=== PATIENT | female | born 1975 | race African-American/Black ===

== ENCOUNTER 2016-09-21 07:30 | Emergency (ER) | payer OTHER ==
[2016-09-21 19:42] VITALS: BP 121/69
--- NOTE | 2016-09-21 20:08 | UC ---
Back Pain HPI - HPI Summary HPI Summary: Pt had pyelonephritis in Jun. Positive culture for e coli, slight L-sided hydronephrosis, no fever or leukocytosis. Hubbard like sx improved with 1 week of cipro but took another week or so of pushing fluids to totally go away. About 1 week ago developed achy bilat low back pain that moved up into flank areas within a day. Feeling tired, crummy, hot and cold since then. Some bladder tenderness but minimal dysuria and no frequency. Worried she has pyelonephritis again. - History of Current Complaint Chief Complaint: UCGeneralIllness Stated Complaint: LOWER BACK/ABD PAIN Time Seen by Provider: 09/21/16 19:44 Hx Obtained From: Patient Hx Last Menstrual Period: 09/06/16 ?: No Onset/Duration: Gradual Onset, Lasting Days Timing: Constant Severity Initially: Mild Severity Currently: Mild Back Pain: Is Discrete @ Character: Dull, Aching Aggravating: Nothing Associated Signs And Symptoms: Positive: Other - mild urinary sx. Negative: Numbness, Bladder Incontinence, Bowel Incontinence, Weight Loss - Allergies/Home Medications Allergies/Adverse Reactions: Allergies Allergy/AdvReac Type Severity Reaction Status Date / Time Ampicillin Allergy Hives Verified 09/21/16 19:24 PMH/Surg Hx/FS Hx/Imm Hx Previously Healthy: Yes - Surgical History Surgical History: Yes Surgery Procedure, Year, and Place: breast fibroid removal 2009. - Family History Known Family History: Negative: Blood Disorder - Social History Lives: With Family Alcohol Use: Occasionally Substance Use Type: None Smoking Status (MU): Heavy Every Day Tobacco Smoker Amount Used/How Often: 1/2 -1 pack/day - Immunization History Most Recent Influenza Vaccination: never Review of Systems Constitutional: Fatigue Skin: Negative Eyes: Negative ENT: Negative Respiratory: Negative Cardiovascular: Negative Gastrointestinal: Abdominal Pain Genitourinary: Negative Motor: Negative Neurovascular: Negative Musculoskeletal: Negative Neurological: Negative Psychological: Negative All Other Systems Reviewed And Are Negative: Yes Physical Exam Triage Information Reviewed: Yes Appearance: Well-Appearing, No Pain Distress, Well-Nourished Vital Signs: Initial Vital Signs Temp 99.1 F 09/21/16 19:25 Pulse 70 09/21/16 19:25 Resp 18 09/21/16 19:25 BP 121/69 09/21/16 19:25 Pulse Ox 100 09/21/16 19:25 Vital Signs Reviewed: Yes Eye Exam: Normal Eyes: Positive: Conjunctiva Clear ENT Exam: Normal ENT: Positive: Normal ENT inspection, Hearing grossly normal, Pharynx normal, TMs normal Dental Exam: Normal Neck exam: Normal Neck: Positive: Supple, Nontender, No Lymphadenopathy Respiratory Exam: Normal Respiratory: Positive: Chest non-tender, Lungs clear, Normal breath sounds, No respiratory distress, No accessory muscle use Cardiovascular Exam: Normal Cardiovascular: Positive: RRR, No Murmur Abdomen Description: Positive: No Organomegaly, Soft. Negative: CVA Tenderness (R), CVA Tenderness (L) Musculoskeletal Exam: Normal Neurological Exam: Normal Psychological Exam: Normal Skin Exam: Normal Back Pain Course/Dx - Differential Dx/Diagnosis Provider Diagnoses: UTI. malaise Discharge - Discharge Plan Condition: Stable Disposition: HOME Prescriptions: Sulfamethox/Trimethoprim DS* [Bactrim DS 800/160 TAB*] 1 tab PO BID #10 tab Patient Education Materials: Urinary Tract Infection in Women (ED) Referrals: Jony Garcia MD [Primary Care Provider] - 1 Week Additional Instructions: Your urinalysis and exam do not suggest a kidney infection, but since you are feeling similar to your recent infection I am treating you with a urinary antibiotic. Please call Dr. Garcia's office for a follow-up visit, this week if possible.
== END 2016-09-21 20:10 | disposition home or self-care (01) ==
LOC: UCEAST 18:46
DX: N39.0 Urinary tract infection, site not specified (principal); R53.81 Other malaise; F17.210 Nicotine dependence, cigarettes, uncomplicated; Z88.0 Allergy status to penicillin
CPT/HCPCS: 81003; 87086; 99212; G0463

== ENCOUNTER 2016-11-22 12:34 | Emergency (ER) | payer MEDICAID, OTHER ==
[2016-11-22 14:28] LABS: Hematocrit 40 % (35-47); Mean Corpuscular HGB Conc 33 g/dl (31-36); Mean Corpuscular Hemoglobin 30 pg (27-31); Mean Corpuscular Volume 92 fL (80-97); Mean Platelet Volume 9 um3 (7.4-10.4); Red Blood Count 4.35 10^6/ul (4.0-5.4); Red Cell Distribution Width 13 % (10.5-15); White Blood Count 6.5 10^3/ul (3.5-10.8)
[2016-11-22 14:35] VITALS: BP 123/53
[2016-11-22 14:46] LABS: ALT 10 U/L (7-52); AST 13 U/L (13-39); Albumin 4.2 g/dL (3.2-5.2); Alkaline Phosphatase 41 U/L (34-104); Anion Gap 4 mmol/L (2-11); BUN/Creatinine Ratio 14.7 (8-20); Blood Urea Nitrogen 10 mg/dL (6-24); CO2 Carbon Dioxide 25 mmol/L (22-32); Calcium 9.4 mg/dL (8.6-10.3); Chloride 109 mmol/L (101-111); EGFR Non-African American 94.9 (>60); Globulin 2.3 g/dL (2-4); Glucose 86 mg/dL (70-100); Potassium 3.8 mmol/L (3.5-5.0); Sodium 138 mmol/L (133-145); Total Protein 6.5 g/dL (6.4-8.9)
[2016-11-22 15:10] LABS: Acetaminophen < 15 mcg/mL; Alcohol < 10 mg/dL (<10); Salicylate < 2.50 mg/dL (<30)
[2016-11-22 15:19] LABS: TSH (Thyroid Stimulating Horm) 0.79 mcIU/mL (0.34-5.60)
[2016-11-22 18:39] LABS: Urine Bilirubin Negative (Negative); Urine Glucose Negative (Negative); Urine Nitrite Negative (Negative)
[2016-11-22 18:55] LABS: Benzodiazepine Urine Screen None Detected (None Detect)
--- NOTE | 2016-11-22 19:55 | ED ---
Palma Mcclellan Edward, scribed for Ronaldo Chatterjee MD on 11/22/16 at 1333 . Psychiatric Complaint - HPI Summary HPI Summary: 41 y/o female presents to ED s/p taking excess Klonopin, c/o of anxiety and panic. Patient was brought in by her after she took an estimated 12 5 mg tablets of Klonopin last night, as well as a moderate amount of EtOH. Patient states she was not trying to hurt herself, but her is worried that she was. Assoc sx: fatigue. Denies nausea, trouble urination. PMHx anxiety. - History Of Current Complaint Chief Complaint: EDMentalHealth Time Seen by Provider: 11/22/16 13:19 Hx Obtained From: Patient, Family/Collection Advisor - Hx Last Menstrual Period: 09/06/16 Character: Anxious Aggravating Factor(s): Recent Stress Related History: Positive For: Prior Psychiatric Issues - PMHx anxiety Ingestion History: Type/Name Of Drug - Klonopin, Amount Ingested - Estimated by as 12 5mg pills in total, Approximate Time Of Ingestion - Last night - Allergies/Home Medications Allergies/Adverse Reactions: Allergies Allergy/AdvReac Type Severity Reaction Status Date / Time Ampicillin Allergy Hives Verified 09/21/16 19:24 PMH/Surg Hx/FS Hx/Imm Hx Previously Healthy: No Psychiatric History: Reports: Hx Anxiety - Surgical History Surgery Procedure, Year, and Place: breast fibroid removal 2009. Infectious Disease History: Denies: Traveled Outside the [place] in Last 30 Days - Family History Known Family History: Negative: Blood Disorder - Social History Alcohol Use: Occasionally Substance Use Type: Reports: None Hx Tobacco Use: Yes Smoking Status (MU): Heavy Every Day Tobacco Smoker Type: Cigarettes Amount Used/How Often: 1/2 -1 pack/day Review of Systems Positive: Fatigue Eyes: Negative ENT: Negative Cardiovascular: Negative Respiratory: Negative Gastrointestinal: Negative Negative: Nausea Genitourinary: Negative Negative: dysuria Musculoskeletal: Negative Skin: Negative Neurological: Negative Positive: Anxious, Other - Panic All Other Systems Reviewed And Are Negative: Yes Physical Exam Triage Information Reviewed: Yes Vital Signs On Initial Exam: Initial Vitals Temp Pulse Resp BP Pulse Ox 98.7 F 101 16 123/58 100 11/22/16 12:38 11/22/16 12:38 11/22/16 12:38 11/22/16 12:38 11/22/16 12:38 Vital Signs Reviewed: Yes Appearance: Positive: Well-Appearing, No Pain Distress Skin: Positive: Warm, Skin Color Reflects Adequate Perfusion, Dry Head/Face: Positive: Normal Head/Face Inspection Eyes: Positive: Normal, EOMI, DU ENT: Positive: Normal ENT inspection Neck: Positive: Supple, Nontender Respiratory/Lung Sounds: Positive: Clear to Auscultation, Breath Sounds Present Cardiovascular: Positive: RRR Abdomen Description: Positive: Nontender, Soft Bowel Sounds: Positive: Present Musculoskeletal: Positive: Normal, Strength/ROM Intact Neurological: Positive: Normal, Sensory/Motor Intact, Alert, Oriented to Person Place, Time Psychiatric: Positive: Normal, Affect/Mood Appropriate Diagnostics - Vital Signs Vital Signs Temp Pulse Resp BP Pulse Ox 11/22/16 12:38 98.7 F 101 16 123/58 100 - Laboratory Lab Results: Lab Results 11/22/16 11/22/16 11/22/16 Range/Units 14:20 14:20 18:25 WBC 6.5 (3.5-10.8) 10^3/ul RBC 4.35 (4.0-5.4) 10^6/ul Hgb 13.0 (12.0-16.0) g/dl Hct 40 (35-47) % MCV 92 (80-97) fL MCH 30 (27-31) pg MCHC 33 (31-36) g/dl RDW 13 (10.5-15) % Plt Count 164 (150-450) 10^3/ul MPV 9 (7.4-10.4) um3 Neut % (Auto) 59.8 (38-83) % Lymph % (Auto) 31.8 (25-47) % Maury % (Auto) 6.8 (1-9) % Eos % (Auto) 0.9 (0-6) % Baso % (Auto) 0.7 (0-2) % Absolute Neuts (auto) 3.9 (1.5-7.7) 10^3/ul Absolute Lymphs (auto) 2.1 (1.0-4.8) 10^3/ul Absolute Monos (auto) 0.4 (0-0.8) 10^3/ul Absolute Eos (auto) 0.1 (0-0.6) 10^3/ul Absolute Basos (auto) 0 (0-0.2) 10^3/ul Absolute Nucleated RBC 0 10^3/ul Nucleated RBC % 0 Sodium 138 (133-145) mmol/L Potassium 3.8 (3.5-5.0) mmol/L Chloride 109 (101-111) mmol/L Carbon Dioxide 25 (22-32) mmol/L Anion Gap 4 (2-11) mmol/L BUN 10 (6-24) mg/dL Creatinine 0.68 (0.51-0.95) mg/dL Est GFR ( Amer) 122.0 (>60) Est GFR (Non-Af Amer) 94.9 (>60) BUN/Creatinine Ratio 14.7 (8-20) Glucose 86 (70-100) mg/dL Calcium 9.4 (8.6-10.3) mg/dL Total Bilirubin 0.90 (0.2-1.0) mg/dL AST 13 (13-39) U/L ALT 10 (7-52) U/L Alkaline Phosphatase 41 (34-104) U/L Total Protein 6.5 (6.4-8.9) g/dL Albumin 4.2 (3.2-5.2) g/dL Globulin 2.3 (2-4) g/dL Albumin/Globulin Ratio 1.8 (1-3) TSH 0.79 (0.34-5.60) mcIU/mL Beta HCG, Quant < 0.60 mIU/mL Urine Color Yellow Urine Appearance Clear Urine pH 7.0 (5-9) Ur Specific Monument 1.010 (1.010-1.030) Urine Protein Negative (Negative) Urine Ketones Negative (Negative) Urine Blood Negative (Negative) Urine Nitrate Negative (Negative) Urine Bilirubin Negative (Negative) Urine Urobilinogen Negative (Negative) Ur Leukocyte Esterase Negative (Negative) Urine Glucose Negative (Negative) Salicylates < 2.50 (<30) mg/dL Urine Opiates Screen (None Detect) Acetaminophen < 15 mcg/mL Ur Barbiturates Screen (None Detect) Ur Phencyclidine Scrn (None Detect) Ur Amphetamines Screen (None Detect) U Benzodiazepines Scrn (None Detect) Urine Cocaine Screen (None Detect) U Cannabinoids Screen (None Detect) Serum Alcohol < 10 (<10) mg/dL 11/22/16 Range/Units 18:25 WBC (3.5-10.8) 10^3/ul RBC (4.0-5.4) 10^6/ul Hgb (12.0-16.0) g/dl Hct (35-47) % MCV (80-97) fL MCH (27-31) pg MCHC (31-36) g/dl RDW (10.5-15) % Plt Count (150-450) 10^3/ul MPV (7.4-10.4) um3 Neut % (Auto) (38-83) % Lymph % (Auto) (25-47) % Maury % (Auto) (1-9) % Eos % (Auto) (0-6) % Baso % (Auto) (0-2) % Absolute Neuts (auto) (1.5-7.7) 10^3/ul Absolute Lymphs (auto) (1.0-4.8) 10^3/ul Absolute Monos (auto) (0-0.8) 10^3/ul Absolute Eos (auto) (0-0.6) 10^3/ul Absolute Basos (auto) (0-0.2) 10^3/ul Absolute Nucleated RBC 10^3/ul Nucleated RBC % Sodium (133-145) mmol/L Potassium (3.5-5.0) mmol/L Chloride (101-111) mmol/L Carbon Dioxide (22-32) mmol/L Anion Gap (2-11) mmol/L BUN (6-24) mg/dL Creatinine (0.51-0.95) mg/dL Est GFR ( Amer) (>60) Est GFR (Non-Af Amer) (>60) BUN/Creatinine Ratio (8-20) Glucose (70-100) mg/dL Calcium (8.6-10.3) mg/dL Total Bilirubin (0.2-1.0) mg/dL AST (13-39) U/L ALT (7-52) U/L Alkaline Phosphatase (34-104) U/L Total Protein (6.4-8.9) g/dL Albumin (3.2-5.2) g/dL Globulin (2-4) g/dL Albumin/Globulin Ratio (1-3) TSH (0.34-5.60) mcIU/mL Beta HCG, Quant mIU/mL Urine Color Urine Appearance Urine pH (5-9) Ur Specific Monument (1.010-1.030) Urine Protein (Negative) Urine Ketones (Negative) Urine Blood (Negative) Urine Nitrate (Negative) Urine Bilirubin (Negative) Urine Urobilinogen (Negative) Ur Leukocyte Esterase (Negative) Urine Glucose (Negative) Salicylates (<30) mg/dL Urine Opiates Screen Presumptive positive H (None Detect) Acetaminophen mcg/mL Ur Barbiturates Screen None detected (None Detect) Ur Phencyclidine Scrn None detected (None Detect) Ur Amphetamines Screen None detected (None Detect) U Benzodiazepines Scrn None detected (None Detect) Urine Cocaine Screen None detected (None Detect) U Cannabinoids Screen Presumptive positive H (None Detect) Serum Alcohol (<10) mg/dL Result Diagrams: 11/22/16 14:20 11/22/16 14:20 Lab Statement: Any lab studies that have been ordered have been reviewed, and results considered in the medical decision making process. - EKG 1 EKG Interpretation: 14:24. NSR @ 63 bpm. Flipped T waves @ III and aVF. No ectopy. Course/Dx - Course Course Of Treatment: NO CRITICAL CARE TIME. CLEARED FOR MHE. DISCHARGE HOME STABLE AFTER MHE. - Differential Dx/Clinical Impression Provider Diagnosis: Mental health problem, Overdose Discharge - Discharge Plan Condition: Stable Disposition: HOME Patient Education Materials: Post Traumatic Stress Disorder (ED), Anxiety (ED) Referrals: Jony Garcia MD [Primary Care Provider] - The documentation as recorded by the Palma mcgowan Edward accurately reflects the service I personally performed and the decisions made by me, Ronaldo Chatterjee MD.
== END 2016-11-22 18:45 | disposition home or self-care (01) ==
LOC: ED 12:34
DX: T42.4X1A Poisoning by benzodiazepines, accidental (unintentional), initial encounter (principal); Z00.8 Encounter for other general examination; Y92.9 Unspecified place or not applicable
CPT/HCPCS: 36415; 80053; 80307; 80320; 80329; 81003; 84443; 84702; 85025; 93005; 99285; G0480

== ENCOUNTER 2017-12-30 21:01 | Emergency (ER) | payer MEDICAID, OTHER ==
[2017-12-30 21:11] VITALS: BP 132/62
--- NOTE | 2017-12-30 21:28 | UC ---
Complaint Female HPI - HPI Summary HPI Summary: This is scrrahul Zarate documenting for attending Emma Leroy M.D. Patient is a 42 y/o female who presents to [facility] c/o UTI complications. She states shes had issues surrounding her UTI for over a year, because she didnt want to take antibiotics due to her IBS. She states she has been using herbal supplements and treatments in lieu of antibiotics, but her symptoms keep rebounding. Patient states she was diagnosed with a kidney infection and upper UTI, but never any kidney stones. She c/o back pain, kidney pain, wrist pain, bone pain, tendon pain, headache, N/V, fatigue, blurred vision, double vision, photophobia, numbness/tingling in hands and feet, straining to empty bladder, and weight loss (25 lbs). Pain is described as 8/10 in severity, aching, and constant. She denies any breathing issues. Patient is a heavy smoker. 09/21/16 urine culture was negative. October 2016 US showed possible hyperemia of left kidney , normal right kidney. June 2016 diagnosed with E. coli UTI. - History Of Current Complaint Chief Complaint: UCGeneralIllness Stated Complaint: BACK PAIN Hx Obtained From: Patient Hx Last Menstrual Period: 09/06/16 Onset/Duration: Gradual Onset, Lasting Weeks - ~ 1 year, Still Present Timing: Intermittent - Never fully resolved Severity Currently: Severe Pain Intensity: 8 Pain Scale Used: 0-10 Numeric Aggravating Factor(s): Other - Not taking antibiotics due to IBS Alleviating Factor(s): Nothing Associated Signs And Symptoms: Positive: Back Pain, Nausea, Vomiting(# Of Episodes =) Related Hx: Similar Episode/Dx as: - UTI 1 year ago - Allergies/Home Medications Allergies/Adverse Reactions: Allergies Allergy/AdvReac Type Severity Reaction Status Date / Time ampicillin Allergy Hives Verified 12/30/17 21:12 Home Medications: Home Medications NK [No Home Medications Reported] 12/30/17 [History Confirmed 12/30/17] PMH/Surg Hx/FS Hx/Imm Hx GI/ History: Other Other GI/ History: UTI, kidney infection, IBS Psychological History: Post Traumatic Stress Disorder - Surgical History Surgical History: Yes Surgery Procedure, Year, and Place: breast fibroid removal 2009. - Family History Known Family History: Negative: Blood Disorder - Social History Occupation: Employed Full-time - [place] Lives: With Family Alcohol Use: Occasionally Substance Use Type: None Smoking Status (MU): Heavy Every Day Tobacco Smoker Type: Cigarettes Amount Used/How Often: 1/2 -1 pack/day - Immunization History Most Recent Influenza Vaccination: never Review of Systems Constitutional: Fever - intermittent, up to 100, Fatigue, Other - Weight loss - 25 lbs Eyes: Blurred Vision, Diplopia, Photophobia Respiratory: Negative Gastrointestinal: Vomiting, Nausea Genitourinary: Other - Straining to empty bladder, flank pain Musculoskeletal: Arthralgia - wrist pain, Myalgia - back pain, Other: - bone pain, tendon pain Neurological: Headache, Numbness - Hands, feet, and jaw All Other Systems Reviewed And Are Negative: Yes Physical Exam Triage Information Reviewed: Yes Appearance: Well-Appearing, No Pain Distress, Thin Vital Signs: Initial Vital Signs Temp 97.6 F 12/30/17 21:06 Pulse 75 12/30/17 21:06 Resp 20 12/30/17 21:06 BP 132/62 12/30/17 21:06 Pulse Ox 100 12/30/17 21:06 Eye Exam: Normal Eyes: Positive: Conjunctiva Clear ENT: Positive: Pharynx normal, TMs normal Neck: Positive: Supple, Nontender, No Lymphadenopathy Respiratory: Positive: Lungs clear, Normal breath sounds Cardiovascular: Positive: RRR, No Murmur Abdomen Description: Positive: Nontender, No Organomegaly, Soft. Negative: CVA Tenderness (R), CVA Tenderness (L) Musculoskeletal Exam: Normal Neurological: Positive: Alert, Muscle Tone Normal Psychological Exam: Normal Skin Exam: Normal Diagnostics - Laboratory Diagnostic Studies Completed/Ordered: UA shows trace blood. Complaint Female Dx - Course Course Of Treatment: Lab studies initiated to evaluate potential causes of pain , symptoms. UA today is not suggestive of active UTI--no antibiotic initiated. - Differential Dx/Diagnosis Provider Diagnoses: microhematuria. diffuse joint pains, headaches NYD Discharge - Sign-Out/Discharge Documenting (check all that apply): Patient Departure - Discharge Plan Condition: Stable Disposition: HOME Patient Education Materials: Hematuria (ED) Referrals: Jony Garcia MD [Primary Care Provider] - Additional Instructions: Labs have been drawn to begin evaluation of your persistent symptoms. Urology evaluation will likely be needed, but I suggest that you follow up with Dr. Fernandes to consider imaging studies as a first step. As discussed, you will seek a visit with Dr. Fernandes tomorrow or Wednesday to review the results. Urine culture will take 48 to 72 hours to complete. - Billing Disposition and Condition Condition: STABLE Disposition: Home
[2017-12-31 11:27] LABS: Hematocrit 41 % (35-47); Hemoglobin 13.8 g/dl (12.0-16.0); Mean Corpuscular HGB Conc 34 g/dl (31-36); Mean Corpuscular Hemoglobin 32 pg (27-31); Mean Corpuscular Volume 94 fL (80-97); Mean Platelet Volume 9.3 um3 (7.4-10.4); Platelet Count 255 10^3/ul (150-450); Red Blood Count 4.33 10^6/ul (4.00-5.40); Red Cell Distribution Width 13 % (10.5-15); White Blood Count 8.3 10^3/ul (3.5-10.8)
[2017-12-31 11:50] LABS: ABS Basophils 0.1 10^3/ul (0-0.2); ABS Eosinophils 0.1 10^3/ul (0-0.6); ABS Lymphocytes 2.4 10^3/ul (1.0-4.8); ABS Monocytes 0.6 10^3/ul (0-0.8); ABS Neutrophils 5.2 10^3/ul (1.5-7.7); ABS Nucleated RBC 0 10^3/ul; Eosinophil % 0.6 % (0-6); Lymphocyte % 29.3 % (25-47); Nucleated Red Blood Cells % 0.1
[2017-12-31 12:00] LABS: EGFR Non-African American 92.9 (>60)
== END 2017-12-30 22:35 | disposition home or self-care (01) ==
LOC: UCEAST 21:01
DX: R31.29 Other microscopic hematuria (principal); M25.539 Pain in unspecified wrist; N23 Unspecified renal colic; M89.8X9 Other specified disorders of bone, unspecified site; R51 Headache; R11.2 Nausea with vomiting, unspecified; R53.83 Other fatigue; H53.8 Other visual disturbances; F17.210 Nicotine dependence, cigarettes, uncomplicated; R20.2 Paresthesia of skin; R63.4 Abnormal weight loss
CPT/HCPCS: 36415; 80053; 81003; 84443; 85025; 86140; 87086; 99211; G0463

== ENCOUNTER → 2018-09-16 11:37 | Emergency (ER) | payer OTHER ==
[~2018-09-16 11:37] MED LIST: Acetaminophen TAB* 325 MG PO ONE; NS 0.9% 1000 ML** 1,000 ML IV.FLUID IV ONE; Oseltamivir CAP* 75 MG CAP PO ONE; Potassium Chlor TAB* 20 MEQ TAB.ER PO ONE
--- NOTE | 2018-09-16 13:48 | ED ---
HPI Febrile Illness - HPI Summary HPI Summary: A 43 y/o female presents to [facility] with a chief complaint of fever today. At triage her temperature was 101.5 and she rated her pain as a 7/10 in severity. 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 The patient reports that she has chronic inflammatory response syndrome (CIRS) for 15 years and has had worsening symptoms for the past 6 months. She c/o body aches, headache, throat pain, nausea, cough, sore throat and chest tightness. She denies hematuria, dysuria or swelling in her legs. She has been unintentionally losing weight for the past six months. She reports that she went to [facility] on 09/13/18 for weakness and was sent home with fluids. - History of Current Complaint Chief Complaint: EDFever Hx Obtained From: Patient, Family/Design Supervisor Hx Last Menstrual Period: 09/06/16 Onset/Duration: Started Hours Ago, Still Present Timing: Constant Temperature: 101.5 F - at triage, 103 C SOFTWARE ENGINEER Initial Severity: Severe Current Severity: Severe Pain Intensity: 7 Pain Scale Used: 0-10 Numeric Aggravating Factors: Nothing Alleviating Factors: Nothing Associated Signs and Symptoms: Negative - hematuria, dysuria, leg swelling, Cough, Nausea, SOB, Other: - body aches - Allergy/Home Medications Allergies/Adverse Reactions: Allergies Allergy/AdvReac Type Severity Reaction Status Date / Time ampicillin Allergy Hives Verified 12/30/17 21:12 Home Medications: Home Medications Mirtazapine TAB* [Remeron TAB*] 15 mg PO BEDTIME 09/16/18 [History Confirmed 05/25] PMH/Surg Hx/FS Hx/Imm Hx Endocrine/Hematology History: Denies: Hx Diabetes, Hx Thyroid Disease Cardiovascular History: Denies: Hx Hypertension Respiratory History: Denies: Hx Asthma, Hx Chronic Obstructive Pulmonary Disease (COPD) GI History: Denies: Hx Ulcer Psychiatric History: Reports: Hx Anxiety Denies: Hx Eating Disorder, Hx of Violent Episodes Against Others - Surgical History Surgery Procedure, Year, and Place: breast fibroid removal 2009. Infectious Disease History: No Infectious Disease History: Denies: Hx Hepatitis, Hx Human Immunodeficiency Virus (HIV), Traveled Outside the [place] in Last 30 Days - Family History Known Family History: Negative: Blood Disorder - Social History Alcohol Use: Occasionally Substance Use Type: Reports: None Hx Tobacco Use: Yes Smoking Status (MU): Heavy Every Day Tobacco Smoker Type: Cigarettes Amount Used/How Often: 1/2 -1 pack/day Review of Systems Positive: Fever Positive: Sore Throat Positive: Chest Pain - tightness Positive: Cough Positive: Nausea Negative: dysuria, hematuria Positive: Other - positive: body aches. Negative: Edema Positive: Headache All Other Systems Reviewed And Are Negative: Yes Physical Exam - Summary Physical Exam Summary: Constitutional: Well-developed, Well-nourished, Alert. Appears uncomfortable. (- ) Distressed Skin: Warm, Dry HENT: Normocephalic; Atraumatic Eyes: Conjunctiva normal Neck: Musculoskeletal ROM normal neck. (-) JVD, (-) Stridor, (-) Tracheal deviation Cardio: Rhythm regular, rate normal, Heart sounds normal; Intact distal pulses; The pedal pulses are 2+ and symmetric. Radial pulses are 2+ and symmetric. (-) Murmur Pulmonary/Chest wall: Effort normal. (-) Respiratory distress, (-) Wheezes, (-) Rales Abd: Soft, (-) tenderness, (-) Distension, (-) Guarding, (-) Rebound Musculoskeletal: (-) Edema Lymph: (-) Cervical adenopathy Neuro: Alert, Oriented x3 Psych: Mood and affect Normal Triage Information Reviewed: Yes Vital Signs On Initial Exam: Initial Vitals Temp Pulse Resp BP Pulse Ox 101.5 F 97 14 104/56 94 09/16/18 11:42 09/16/18 11:42 09/16/18 11:42 09/16/18 11:42 09/16/18 11:42 Vital Signs Reviewed: Yes Diagnostics - Vital Signs Vital Signs Temp Pulse Resp BP Pulse Ox 09/16/18 13:33 102.1 F 104 95 84/53 96 09/16/18 11:42 101.5 F 97 14 104/56 94 - Laboratory Result Diagrams: 09/16/18 13:59 09/16/18 13:59 Lab Statement: Any lab studies that have been ordered have been reviewed, and results considered in the medical decision making process. - Radiology CXR Radiology Interpretation Completed By: Radiologist Summary of Radiographic Findings: NO ACTIVE CARDIOPULMONARY DISEASE. ED physician has reviewed this imaging report. - EKG 01:05 Cardiac Rate: NL - 79 bpm EKG Rhythm: Sinus Rhythm Summary of EKG Findings: NSR at 79bpm, normal axis, normal [place], normal QRS QTc, normal ST,. T-waves flatteed in v2 II, III, aVF, nonsepcific EKG Re-Evaluation - Re-Evaluation First Eval Re-Evaluation Time: 15:20 Change: Unchanged Comment: Discussed results. Patient is ready for discharge. Course/Dx - Course Course Of Treatment: A 43 y/o female presents to [facility] with a chief complaint of fever today. At triage her temperature was 101.5 and she rated her pain as a 7/10 in severity. 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 The patient reports that she has chronic inflammatory response syndrome (CIRS) for 15 years and has had worsening symptoms for the past 6 months. The physical exam revealed that she appeared uncomfortable. Bloodwork and chemistries obtained. The patient tested positive for Influenza A. CXR impression: NO ACTIVE CARDIOPULMONARY DISEASE. EKG at 01:05 showed NSR at 79bpm, normal axis, normal [place], normal QRS QTc, normal ST, T-waves flatteed in v2 II, III, aVF, nonsepcific EKG. The patietn will be discharged home with a prescription for Tamiflu. She is agreeable with this plan. - Diagnoses Provider Diagnoses: Influenza Is Visit Related: No Discharge - Sign-Out/Discharge Documenting (check all that apply): Patient Departure - DC Patient Received Moderate/Deep Sedation with Procedure: No - Discharge Plan Condition: Good Disposition: HOME Prescriptions: Oseltamivir CAP* [Tamiflu CAP*] 75 mg PO BID #9 cap Patient Education Materials: Influenza (ED) Print Language: GEORGIAN Referrals: Yi Dan MD [Primary Care Provider] - - Billing Disposition and Condition Condition: GOOD Disposition: Home - Attestation Statements Document Initiated by Scribe: Yes Documenting Scribe: Kwame Whitaker Provider For Whom Madeline is Documenting (Include Credential): Kate Lovelace MD Scribe Attestation: Kwame Mcclellan scribed for Kate Lovelace MD on 09/16/18 at 2239. Scribe Documentation Reviewed: Yes Provider Attestation: The documentation as recorded by the Kwame mcgowan accurately reflects the service I personally performed and the decisions made by me, Kate Lovelace MD Status of Scribe Document: Viewed
[2018-09-16 14:12] LABS: Influenza A Molecular POSITIVE (Negative)
[2018-09-16 14:16] LABS: ABS Basophils 0 10^3/ul (0-0.2); ABS Eosinophils 0 10^3/ul (0-0.6); ABS Lymphocytes 0.3 10^3/ul (1.0-4.8); ABS Monocytes 0.3 10^3/ul (0-0.8); ABS Neutrophils 3.7 10^3/ul (1.5-7.7); ABS Nucleated RBC 0 10^3/ul; Eosinophil % 0 %; Hematocrit 37 % (33-41); Hemoglobin 12.3 g/dL (12.0-16.0); Lymphocyte % 7.3 %; Mean Corpuscular HGB Conc 34 g/dL (31-36); Mean Corpuscular Hemoglobin 30 pg (27-31); Mean Corpuscular Volume 90 fL (80-97); Mean Platelet Volume 8.4 fL (7.4-10.4); Nucleated Red Blood Cells % 0; Platelet Count 199 10^3/uL (150-450); Red Blood Count 4.04 10^6 /uL (3.70-4.87); Red Cell Distribution Width 13 % (10.5-15); White Blood Count 4.3 10^3/uL (3.5-10.8)
[2018-09-16 14:25] LABS: Activated Partial Thrombo Time 29.1 seconds (26.0-36.3); INR 1.15 (0.77-1.02)
[2018-09-16 14:36] LABS: Troponin I 0.02 ng/mL (<0.04)
[2018-09-16 14:37] LABS: Albumin 4.5 g/dL (3.2-5.2); BUN/Creatinine Ratio 11.4 (8-20); Calcium 9.4 mg/dL (8.6-10.3); EGFR Non-African American 90.9 (>60); Globulin 2.3 g/dL (2-4); Total Bilirubin 0.6 mg/dL (0.2-1.0); Total Protein 6.8 g/dL (6.4-8.9)
[2018-09-16 15:52] VITALS: BP 120/60
== END | disposition home or self-care (01) ==
LOC: ED 11:37
DX: J11.1 Influenza due to unidentified influenza virus with other respiratory manifestations (principal); F41.9 Anxiety disorder, unspecified; F17.210 Nicotine dependence, cigarettes, uncomplicated; Z88.3 Allergy status to other anti-infective agents
CPT/HCPCS: 36415; 71045; 80053; 83605; 84484; 85025; 85610; 85730; 87040; 93005; 96360; 96361; 99283; A9270-GY